=== PATIENT | female | born 2000 | race African-American/Black ===

== ENCOUNTER 2019-03-15 00:02 | Emergency (ER) | payer SELFPAY ==
[2019-03-15 00:29] LABS: ABSOLUTE MONOCYTES (AUTO) 0.5 10^3/uL (0.1-1.4); ABSOLUTE NEUT (AUTO) 6.5 10^3/uL (1.7-8.2); BASOPHILS % (AUTO) 0.3 % (0-2); EOSINOPHILS % (AUTO) 0.3 % (0-6); HEMATOCRIT 30.2 % (36.0-47.0); HEMOGLOBIN 9.8 g/dL (12.0-15.5); LYMPHOCYTES % (AUTO) 12.3 % (13-45); MEAN CORPUSCULAR HEMOGLOBIN 27.8 pg (27.0-33.4); MEAN CORPUSCULAR HGB CONC 32.5 g/dL (32.0-36.0); MEAN CORPUSCULAR VOLUME 86 fl (80-97); MONOCYTES % (AUTO) 6.3 % (3-13); PLATELET COUNT 229 10^3/uL (150-450); RED BLOOD COUNT 3.53 10^6/uL (3.72-5.28); RED CELL DISTRIBUTION WIDTH 15.1 % (11.5-14.0); SEGMENTED NEUTROPHILS % (AUTO) 80.8 % (42-78); TOTAL CELLS COUNTED % (AUTO) 100 %; WHITE BLOOD COUNT 8.1 10^3/uL (4.0-10.5)
[2019-03-15 00:48] LABS: ALANINE AMINOTRANSFERASE 11 U/L (5-35); ALBUMIN 4.2 g/dL (3.7-5.6); ALKALINE PHOSPHATASE 53 U/L (50-135); ANION GAP 13 (5-19); ASPARTATE AMINO TRANSFERASE 18 U/L (5-30); BILIRUBIN,DIRECT 0.3 mg/dL (0.0-0.4); BILIRUBIN,TOTAL 0.3 mg/dL (0.2-1.3); BLOOD UREA NITROGEN 14 mg/dL (7-20); CALCIUM 9.3 mg/dL (8.4-10.2); CARBON DIOXIDE 22 mmol/L (22-30); CHLORIDE 110 mmol/L (98-107); GLUCOSE 137 mg/dL (75-110); POTASSIUM 3.4 mmol/L (3.6-5.0); SODIUM 145.2 mmol/L (137-145); TOTAL PROTEIN 7.2 g/dL (6.3-8.2)
[2019-03-15] MEDS ORDERED: RINGERS SOLUTION,LACTATED 1,000 ML IV ONE (00:49)
[2019-03-15 00:56] LABS: ACETAMINOPHEN < 10 ug/mL (10-30); ALCOHOL < 10 mg/dL (NONE DETECTED); SALICYLATE < 1.0 mg/dL (2.0-20.0)
[2019-03-15 01:29] LABS: APPEARANCE,URINE CLOUDY; BILIRUBIN,URINE NEGATIVE (NEGATIVE); COLOR,URINE YELLOW; GLUCOSE, URINE NEGATIVE (NEGATIVE); KETONES,URINE 20 mg/dL (NEGATIVE); LEUKOCYTE ESTERASE,URINE TRACE (NEGATIVE); NITRITE,URINE NEGATIVE (NEGATIVE); PROTEIN,URINE 100 mg/dL (NEGATIVE); URINE SPECIFIC GRAVITY 1.025; UROBILINOGEN,URINE NEGATIVE mg/dL (<2.0)
[2019-03-15 01:33] LABS: URINE AMPHETAMINES SCREEN NEGATIVE; URINE BARBITURATES SCREEN NEGATIVE; URINE BENZODIAZEPINES SCREEN UNCONFIRMED POSITIVE; URINE COCAINE SCREEN NEGATIVE; URINE MARIJUANA (THC) SCREEN UNCONFIRMED POSITIVE; URINE METHADONE SCREEN NEGATIVE; URINE PHENCYCLIDINE SCREEN NEGATIVE
[2019-03-15 02:08] LABS: CREATINE KINASE MB 0.55 ng/mL (<4.55)
[2019-03-15 02:10] LABS: TROPONIN I < 0.012 ng/mL
--- NOTE | 2019-03-15 02:52 | ER Document Report ---
ED General - General Chief Complaint: Psych Problem Stated Complaint: PSYCH Time Seen by Provider: 03/15/19 00:15 Primary Care Provider: JUDAH ZULUAGA MD [Primary Care Provider] - Follow up as needed Mode of Arrival: Medic Information source: Patient, Parent, Emergency Med Personnel Notes: 18-year-old female no reported past medical history presents via EMS after pat ient was found running erratically in the street, altered, combative. Mother reports that the patient is visiting from out of town and she dropped her off earlier to hang out with her stepbrother. She states that she got a call from the patient stating that she wanted to be picked up. When the mother arrived to the patient's location she found the patient running down the street hysterically. She attempted to run after the patient but was unable to catch her. She states that the patient ran through a ditch and was confused. She states that she was finally able to tackle the patient and sit on her until EMS arrived. Patient does admit to smoking marijuana. She denies any alcohol use o r other illicit drug use. Mother states that she attempted several times to contact the patient's stepbrother to attempt to find out what the patient was given. Patient does not have a prior psychiatric history. She is not currently on any medications. Mother reports that she is currently menstruating. - HPI Onset: Just prior to arrival Onset/Duration: Sudden Quality of pain: No pain Severity: None Pain Level: Denies Associated symptoms: denies: Body/muscle aches, Chest pain, Productive cough, Diarrhea, Fever, Nausea, Vomiting, Shortness of breath Exacerbated by: Denies Relieved by: Denies Similar symptoms previously: No Recently seen / treated by doctor: No - Related Data Allergies/Adverse Reactions: No Known Allergies Allergy (Unverified 03/15/19 00:32) Past Medical History - General Information source: Patient - Social History Smoking Status: Never Smoker Frequency of alcohol use: None Drug Abuse: Marijuana Lives with: Friend Family History: Reviewed & Not Pertinent Patient has suicidal ideation: No Patient has homicidal ideation: No - Medical History Medical History: Negative Renal/ Medical History: Denies: Hx Peritoneal Dialysis Review of Systems - Review of Systems Notes: REVIEW OF SYSTEMS: CONSTITUTIONAL : Denies fever, chills, or sweats. Denies recent illness. Solis es weight loss, recent hospitalizations. EENT: Denies visual changes, eye pain. Denies sore throat, oral lesions, difficulty swallowing. CARDIOVASCULAR: Denies chest pain. Denies palpitations. Denies lower extremity edema. RESPIRATORY: Denies cough. Denies shortness of breath, wheezing. GASTROINTESTINAL: Denies abdominal pain or distention. Denies nausea, vomiting, or diarrhea. Denies blood in vomitus, stools, or per rectum. Denies black, tarry stools. Denies constipation. GENITOURINARY: Denies difficulty urinating, painful urination, frequency, blood in urine, or vaginal discharge. MUSCULOSKELETAL: Denies back or neck pain or stiffness. Denies joint pain or swelling. SKIN: + Multiple superficial abrasions HEMATOLOGIC : Denies easy bruising or bleeding. LYMPHATIC: Denies swollen glands. NEUROLOGICAL: + confusion or altered mental status. Denies loss of consciousne ss. Denies dizziness or lightheadedness. Denies headache. Denies weakness or paralysis. Denies problems difficulty with ambulation, slurred speech. Denies sensory loss, numbness, or tingling. Denies seizures. PSYCHIATRIC: Denies anxiety or stress. Denies depression, suicidal ideation, or homicidal ideation. Denies visual or auditory hallucinations. Physical Exam - Vital signs Vitals: Resp Pulse Ox 19 98 03/15/19 00:05 03/15/19 00:05 - Notes Notes: PHYSICAL EXAMINATION: GENERAL: Somnolent but arousable with verbal stimuli. HEAD: Atraumatic, normocephalic. EYES: Pupils equal round and reactive to light, extraocular movements intact, conjunctiva are normal. ENT: Nares patent, oropharynx clear without exudates. Moist mucous membranes. NECK: Normal range of motion, supple without lymphadenopathy LUNGS: Breath sounds clear to auscultation bilaterally and equal. No wheezes rales or rhonchi. HEART: Tachycardic, regular rhythm ABDOMEN: Soft, nontender, nondistended abdomen. No guarding, no rebound. No masses appreciated. Female : deferred Musculoskeletal: Normal range of motion, no pitting or edema. No cyanosis. NEUROLOGICAL: Cranial nerves grossly intact. Normal speech, normal gait. Normal sensory, motor exams PSYCH: Normal mood, normal affect. SKIN: Multiple superficial abrasions to the upper extremities. Course - Re-evaluation Re-evalutation: 03/15/19 02:49 Laboratory 03/15/19 03/15/19 03/15/19 00:10 00:10 00:10 WBC 8.1 RBC 3.53 L Hgb 9.8 L Hct 30.2 L MCV 86 MCH 27.8 MCHC 32.5 RDW 15.1 H Plt Count 229 Seg Neutrophils % 80.8 H Lymphocytes % 12.3 L Monocytes % 6.3 Eosinophils % 0.3 Basophils % 0.3 Absolute Neutrophils 6.5 Absolute Lymphocytes 1.0 Absolute Monocytes 0.5 Absolute Eosinophils 0.0 Absolute Basophils 0.0 Sodium 145.2 H Potassium 3.4 L Chloride 110 H Carbon Dioxide 22 Anion Gap 13 BUN 14 Creatinine 0.70 Est GFR ( Amer) > 60 Est GFR (Non-Af Amer) > 60 Glucose 137 H Calcium 9.3 Total Bilirubin 0.3 Direct Bilirubin 0.3 Neonat Total Bilirubin Not Reportable Neonat Direct Bilirubin Not Reportable Neonat Indirect Bili Not Reportable AST 18 ALT 11 Alkaline Phosphatase 53 Creatine Kinase 211 H CK-MB (CK-2) Troponin I Total Protein 7.2 Albumin 4.2 Urine Color Urine Appearance Urine pH Ur Specific [place] Urine Protein Urine Glucose (UA) Urine Ketones Urine Blood Urine Nitrite Urine Bilirubin Urine Urobilinogen Ur Leukocyte Esterase Urine WBC (Auto) Urine RBC (Auto) U Hyaline Cast (Auto) Squamous Epi Cells Auto Urine Mucus (Auto) Urine Ascorbic Acid Salicylates < 1.0 L Urine Opiates Screen Urine Methadone Screen Acetaminophen < 10 L Ur Barbiturates Screen Ur Phencyclidine Scrn Ur Amphetamines Screen U Benzodiazepines Scrn Urine Cocaine Screen U Marijuana (THC) Screen Serum Alcohol < 10 03/15/19 03/15/19 03/15/19 00:10 00:50 00:50 WBC RBC Hgb Hct MCV MCH MCHC RDW Plt Count Seg Neutrophils % Lymphocytes % Monocytes % Eosinophils % Basophils % Absolute Neutrophils Absolute Lymphocytes Absolute Monocytes Absolute Eosinophils Absolute Basophils Sodium Potassium Chloride Carbon Dioxide Anion Gap BUN Creatinine Est GFR ( Amer) Est GFR (Non-Af Amer) Glucose Calcium Total Bilirubin Direct Bilirubin Neonat Total Bilirubin Neonat Direct Bilirubin Neonat Indirect Bili AST ALT Alkaline Phosphatase Creatine Kinase CK-MB (CK-2) 0.55 Troponin I < 0.012 Total Protein Albumin Urine Color YELLOW Urine Appearance CLOUDY Urine pH 5.0 Ur Specific [place] 1.025 Urine Protein 100 H Urine Glucose (UA) NEGATIVE Urine Ketones 20 H Urine Blood LARGE H Urine Nitrite NEGATIVE Urine Bilirubin NEGATIVE Urine Urobilinogen NEGATIVE Ur Leukocyte Esterase TRACE H Urine WBC (Auto) 3 Urine RBC (Auto) 2 U Hyaline Cast (Auto) 6 Squamous Epi Cells Auto 4 Urine Mucus (Auto) MANY Urine Ascorbic Acid NEGATIVE Salicylates Urine Opiates Screen NEGATIVE Urine Methadone Screen NEGATIVE Acetaminophen Ur Barbiturates Screen NEGATIVE Ur Phencyclidine Scrn NEGATIVE Ur Amphetamines Screen NEGATIVE U Benzodiazepines Scrn UNCONFIRMED POSITIVE Urine Cocaine Screen NEGATIVE U Marijuana (THC) Screen UNCONFIRMED POSITIVE Serum Alcohol Temp Pulse Resp BP Pulse Ox 100.8 F H 18 125/69 100 03/15/19 00:15 03/15/19 01:00 03/15/19 00:07 03/15/19 01:00 18-year-old female presents altered via EMS. Prior to arrival patient was found acting erratically, running around the street and combative. Mother reports that she received a phone call from the patient stating that she needed to be picked up and when she arrived to the patient's location the patient was found screaming and running down the street. Patient does admit to smoking marijuana this evening. Denies any other illicit drug or alcohol use. Prior to arrival patient did receive Versed, Benadryl and Haldol from EMS. Upon arrival patient is somnolent but arousable. She does not appear toxic or dehydrated. She is able to move all extremities, sit up independently and was walking around the room. Vital signs reviewed and patient has a low-grade temp and is tachycardic. CBC is without leukocytosis but with a stable anemia. CMP shows hyponatremia. CK is mildly elevated at 211. Urinalysis shows hematuria likely secondary to patient menstruating. Urine drug screen positive for marijuana and benzodiazepine. Patient did receive IV fluids, Toradol and on reevaluation tachycardia has improved. Patient will be evaluated in the emergency department until she is more awake, alert and is tolerating p.o. Findings discussed with the mother who is at the bedside. 03/15/19 02:53 Mother reports patient's tetanus is updated. 03/15/19 02:54 Repeat temperature is within normal limits. - Vital Signs Vital signs: Temp Pulse Resp BP Pulse Ox 100.8 F H 18 125/69 100 03/15/19 00:15 03/15/19 01:00 03/15/19 00:07 03/15/19 01:00 - Laboratory Result Diagrams: 03/15/19 00:10 03/15/19 00:10 Laboratory results interpreted by me: 03/15/19 03/15/19 03/15/19 00:10 00:10 00:10 RBC 3.53 L Hgb 9.8 L Hct 30.2 L RDW 15.1 H Seg Neutrophils % 80.8 H Lymphocytes % 12.3 L Sodium 145.2 H Potassium 3.4 L Chloride 110 H Glucose 137 H Creatine Kinase 211 H Urine Protein Urine Ketones Urine Blood Ur Leukocyte Esterase Salicylates < 1.0 L Acetaminophen < 10 L 03/15/19 00:50 RBC Hgb Hct RDW Seg Neutrophils % Lymphocytes % Sodium Potassium Chloride Glucose Creatine Kinase Urine Protein 100 H Urine Ketones 20 H Urine Blood LARGE H Ur Leukocyte Esterase TRACE H Salicylates Acetaminophen Discharge - Discharge Clinical Impression: Marijuana use, Agitation Drug reaction Qualifiers: Encounter type: initial encounter Qualified Code(s): T50.905A - Adverse effect of unspecified drugs, medicaments and biological substances, initial encounter Altered mental status Qualifiers: Altered mental status type: somnolence Qualified Code(s): R40.0 - Somnolence Condition: Good Disposition: HOME, SELF-CARE Instructions: Altered Mental Status ([facility]), Abrasions ([facility]) Additional Instructions: your urine drug screen was positive for marijuana. This is likely the reason for your acute agitation. Follow up with your [id number] hours for further care or return to the ED IMMEDIATELY if symptoms worsen or you have any concerns. If you cannot afford to follow up with your primary care physician a list of low cost clinics have been provided at the end of your discharge papers as well. Most prescribed medications have multiple side effects. The safest thing to do is when filling your prescription speak to your pharmacist regarding possible interactions with your normal home medications and over the counter medications such as Ibuprofen, Tylenol, Benadryl. If you experience any symptoms that cause you discomfort or concern you should discontinue the medication immediately and return to the emergency room or call your primary care physician. Referrals: JUDAH ZULUAGA MD [Primary Care Provider] - Follow up tomorrow
[2019-03-15] MEDS: NORMAL SALINE 1000 ML 1,000 ML IV PRN ×2 (03:06→03:31)
[2019-03-15 04:13] VITALS: BP 119/76
--- NOTE | 2019-03-15 19:27 | EKG REPORT ---
SEVERITY:- OTHERWISE NORMAL ECG - SINUS TACHYCARDIA : Confirmed by: Reva Verdin MD 15-Mar-2019 19:27:16
== END 2019-03-15 04:13 | disposition home or self-care (01) ==
LOC: ER 00:02
DX: F12.10 Cannabis abuse, uncomplicated (principal); R40.0 Somnolence; R41.0 Disorientation, unspecified; R45.1 Restlessness and agitation; T50.905A Adverse effect of unspecified drugs, medicaments and biological substances, initial encounter; S40.812A Abrasion of left upper arm, initial encounter; S40.811A Abrasion of right upper arm, initial encounter; X58.XXXA Exposure to other specified factors, initial encounter; R00.0 Tachycardia, unspecified; D64.9 Anemia, unspecified; E87.1 Hypo-osmolality and hyponatremia; R74.8 Abnormal levels of other serum enzymes
CPT/HCPCS: 93005; 99285; 96360; 96361; 36415; 82553; 80307 ×4; 82550; 85025; 80053; 81001; 84484; 93010; J7030; J7120